=== PATIENT | male | born 1975 | race Caucasian/White ===

== ENCOUNTER 2019-09-03 01:27 | Emergency (ER) | payer MEDICAID ==
[2019-09-03] MEDS ORDERED: Sodium Chloride 0.9% 10 ML Syringe FLUSH PRN (01:55)
[2019-09-03] MEDS: Aspirin 81 MG Tab.Chew PO ONE (01:58)
--- NOTE | 2019-09-03 02:20 | EDM.PDOC ---
ED HPI GENERAL MEDICAL PROBLEM - General Chief Complaint: General Stated Complaint: chest pain Time Seen by Provider: 09/03/19 02:02 Source of Information: Reports: Patient History Limitations: Reports: No Limitations - History of Present Illness INITIAL COMMENTS - FREE TEXT/NARRATIVE: Patient presents with mid chest tightness that started about 8 hours ago and was 8/10 now down to 3/10. He was sitting watching TV when the tightness started; it lasted over 2 hours, then subsided so he went to bed, but he couldn' t sleep. He says the pain never worsened again but has remained at 3/10 for the last 6 hours like it has been for several months. Since he couldn't sleep he was getting anxious about the pain and decided to come to ER. He thinks he has coronary artery blockage since some tests a few months ago in [place]. He has had mild chest pain before but never this bad. No history of PR or diabetes. He has nitroglycerin but has never taken it. Bilateral Chest Pain Score (Numeric/FACES): 5 - Related Data Allergies Allergy/AdvReac Type Severity Reaction Status Date / Time No Known Drug Allergies Allergy none Verified 05/21/14 07:06 Home Meds: Home Meds Levothyroxine Sodium [Synthroid] 75 mg PO DAILY 05/14/14 [History] carBAMazepine [Carbamazepine ER] 400 mg PO BID 05/14/14 [History] risperiDONE [Risperdal] 1.5 tab PO BEDTIME 05/14/14 [History] Past Medical History Psychiatric History: Reports: Anxiety, Bipolar, Depression, Learning Disability Endocrine/Metabolic History: Reports: Hypoparathyroidism Social & Family History - Living Situation & Occupation Living situation: Reports: Single Occupation: Unemployed ED ROS GENERAL - Review of Systems Review Of Systems: See Below Constitutional: Denies: Fever, Chills, Malaise, Weakness, Diaphoresis HEENT: Denies: Ear Pain, Throat Pain, Vision Change Respiratory: Reports: Shortness of Breath. Denies: Cough Cardiovascular: Reports: Chest Pain. Denies: Lightheadedness, Syncope GI/Abdominal: Denies: Abdominal Pain, Diarrhea, Nausea, Vomiting : Denies: Dysuria, Flank Pain Musculoskeletal: Denies: Neck Pain, Shoulder Pain, Arm Pain, Back Pain Skin: Denies: Cyanosis, Jaundice, Mottled, Pallor, Diaphoresis Neurological: Denies: Confusion, Dizziness, Headache, Seizure, Syncope Psychiatric: Denies: Agitation, Anxiety, Confusion ED EXAM, GENERAL - Physical Exam Exam: See Below Exam Limited By: No Limitations General Appearance: Alert, WD/WN, No Apparent Distress Eye Exam: Bilateral Eye: EOMI, Normal Inspection, PERRL Ears: Normal External Exam, Hearing Grossly Normal Nose: Normal Inspection, No Blood Throat/Mouth: Normal Inspection, Normal Lips, Normal Voice, No Airway Compromise Head: Atraumatic, Normocephalic Neck: Normal Inspection, Supple, Non-Tender, Full Range of Motion Respiratory/Chest: No Respiratory Distress, Lungs Clear, Normal Breath Sounds, No Accessory Muscle Use Cardiovascular: Regular Rate, Rhythm, No Murmur GI/Abdominal: Normal Bowel Sounds, Soft, Non-Tender, No Organomegaly, No Distention Back Exam: Normal Inspection, Full Range of Motion Extremities: Normal Inspection, Normal Range of Motion, No Pedal Edema Neurological: Alert, Oriented, Normal Cognition, No Motor/Sensory Deficits Psychiatric: Normal Affect, Normal Mood Skin Exam: Warm, Dry, Intact, Normal Color, No Rash Course - Vital Signs Last Recorded V/S: Last Vital Signs Temp 95.4 F L 09/03/19 01:30 Pulse 92 09/03/19 03:27 Resp 17 09/03/19 01:30 BP 121/87 09/03/19 03:27 Pulse Ox 98 09/03/19 01:30 - Orders/Labs/Meds Orders: Active Orders 24 hr Category Date Time Status EKG Documentation Completion [RC] ASDIRECTED Care 09/03/19 02:40 Active Peripheral IV Care [RC] . DIRECTED Care 09/03/19 01:55 Active Nitroglycerin [Nitrostat] Med 09/03/19 01:54 Active 0.4 mg SL Q5M PRN Sodium Chloride 0.9% [Saline Flush] Med 09/03/19 01:55 Active 10 ml FLUSH Q8HR PRN Peripheral IV Insertion Adult [OM.PC] Routine Oth 09/03/19 01:55 Ordered EKG 12 Lead [EK] Stat Ther 09/03/19 01:46 Ordered Medication Orders Nitroglycerin (Nitrostat) 0.4 mg SL Q5M PRN PRN Reason: Chest Pain Last Admin: 09/03/19 02:58 Dose: 0.4 mg Sodium Chloride (Saline Flush) 10 ml FLUSH Q8HR PRN PRN Reason: keep vein open Labs: Laboratory Tests 09/03/19 09/03/19 Range/Units 02:15 02:15 WBC 7.02 (5.00-10.00) 10^3/uL RBC 4.28 L (4.50-6.00) 10^6/uL Hgb 14.1 (13.0-17.0) g/dL Hct 39.8 L (40.0-52.0) % MCV 93.0 H D (82.0-92.0) fL MCH 32.9 H (27.0-31.0) pg MCHC 35.4 (32.0-36.0) g/dL RDW 11.7 (11.5-14.5) % Plt Count 198 (150-400) 10^3/uL MPV 9.2 (7.4-10.4) fL Immature Gran % (Auto) 0.4 (0.0-5.0) % Neut % (Auto) 50.2 (50.0-70.0) % Lymph % (Auto) 35.0 (20.0-40.0) % [place] % (Auto) 10.0 H (2.0-8.0) % Eos % (Auto) 3.8 H (1.0-3.0) % Baso % (Auto) 0.6 (0.0-1.0) % Neut # (Auto) 3.52 (2.50-7.00) 10^3/uL Lymph # (Auto) 2.46 (1.00-4.00) 10^3/uL [place] # (Auto) 0.70 (0.10-0.80) 10^3/uL Eos # (Auto) 0.27 (0.10-0.30) 10^3/uL Baso # (Auto) 0.04 (0.00-0.10) 10^3/uL Immature Gran # (Auto) 0.03 (0.00-0.50) 10^3/uL Sodium 137 (136-145) mmol/L Potassium 4.6 (3.3-5.3) mmol/L Chloride 96 L (98-115) mmol/L Carbon Dioxide 27.5 (21.0-32.0) mmol/L Anion Gap 18.1 H (5-15) mmol/L BUN 12 (6-25) mg/dL Creatinine 0.66 (0.51-1.17) mg/dL Est Cr Clr Drug Dosing 155.29 mL/min Estimated GFR (MDRD) > 60 mL/min Glucose 97 (75 - 99) mg/dL Calcium 8.7 (8.7-10.3) mg/dL Troponin I 0.07 (0.00-0.070) ng/mL Meds: Medications Generic Name Dose Route Start Last Admin Trade Name Freq PRN Reason Stop Dose Admin Nitroglycerin 0.4 mg 09/03/19 01:54 09/03/19 02:58 Nitrostat SL 0.4 mg Q5M PRN Administration Chest Pain Sodium Chloride 10 ml 09/03/19 01:55 Saline Flush FLUSH Q8HR PRN keep vein open Discontinued Medications Generic Name Dose Route Start Last Admin Trade Name Freq PRN Reason Stop Dose Admin Aspirin 324 mg 09/03/19 01:53 09/03/19 01:58 Aspirin PO 09/03/19 01:54 324 mg ONETIME ONE Administration Al Hydroxide/Mg Hydroxide 30 0 ml 09/03/19 03:15 09/03/19 03:22 ml/ Lidocaine HCl 15 ml PO 09/03/19 03:16 45 ml ONETIME ONE Administration - Re-Assessments/Exams Free Text/Narrative Re-Assessment/Exam: 09/03/19 02:20 He was given ASA 324 mg and getting IV access then nitroglycerin prn. EKG NSR. 09/03/19 02:49 Patient says chest tightness is steady at 3/10 which is his baseline for the past 3+ months. He says he feels normal now. I asked when he last saw his tobacco packing machine operator and he said about 4 weeks ago; he talked with him about the constant chest tightness and was given nitroglycerin to carry but has never used it as he is scared to. He denies any history of heartburn/reflux. Since we have IV access will try nitro now and possibly GI cocktail. Waiting on labs. 09/03/19 03:43 I reviewed his [place] chart with the tobacco packing machine operator and PCP notes. Troponin is 0.07; on comparison his last two trops were 0.08 on 05/31/19 and rechecked 0.08 on 06/01/19. Nitro SL and GI cocktail were tried but no change in symptoms. Pain remains at baseline of 06/26. I discussed findings and treatment plan with patient. I informed him that the tests confirm he is not having a heart attack. He thinks it might be anxiety and I feels this is most likely also. Pt is discharged to home in stable condition. Departure - Departure Time of Disposition: 03:41 Disposition: Home, Self-Care 01 Condition: Good Clinical Impression: Anxiety, Sensation of chest tightness - Discharge Information Instructions: Nonspecific Chest Pain, Adult, [id number] Referrals: Francie Caballero MD [Primary Care Provider] - Forms: ED Department Discharge Additional Instructions: 1. On Wednesday see your Primary Care Provider in clinic for recheck. 2. See the tobacco packing machine operator in two weeks as scheduled. Sepsis Event Note - Focused Exam Vital Signs: Vital Signs Temp Pulse Resp BP BP Pulse Ox 09/03/19 03:27 92 121/87 09/03/19 03:20 74 131/81 09/03/19 02:58 146/84 H 09/03/19 01:30 95.4 F L 76 17 147/93 H 98 Date Exam was Performed: 09/03/19 Time Exam was Performed: 03:56 - My Orders Last 24 Hours: My Active Orders 09/03/19 01:46 EKG 12 Lead [EK] Stat 09/03/19 01:54 Nitroglycerin [Nitrostat] 0.4 mg SL Q5M PRN 09/03/19 01:55 Peripheral IV Care [RC] . DIRECTED Sodium Chloride 0.9% [Saline Flush] 10 ml FLUSH Q8HR PRN Peripheral IV Insertion Adult [OM.PC] Routine 09/03/19 02:40 EKG Documentation Completion [RC] ASDIRECTED - Assessment/Plan Last 24 Hours: My Active Orders 09/03/19 01:46 EKG 12 Lead [EK] Stat 09/03/19 01:54 Nitroglycerin [Nitrostat] 0.4 mg SL Q5M PRN 09/03/19 01:55 Peripheral IV Care [RC] . DIRECTED Sodium Chloride 0.9% [Saline Flush] 10 ml FLUSH Q8HR PRN Peripheral IV Insertion Adult [OM.PC] Routine 09/03/19 02:40 EKG Documentation Completion [RC] ASDIRECTED
[2019-09-03 02:58] LABS: ANION GAP 18.1 mmol/L (5-15); CHLORIDE,CL 96 mmol/L (98-115); SODIUM,NA 137 mmol/L (136-145)
[2019-09-03] MEDS: Nitroglycerin 0.4 MG Tab.SL SL PRN (02:58)
[2019-09-03] MEDS: Alum Hydrox/Mag Hydrox/Simeth 30 ML, Lidocaine 2% 15 ML PO ONE ×2 (03:22)
[2019-09-03 03:28] VITALS: BP 121/87; PULSE 92
== END 2019-09-03 03:55 | disposition home or self-care (01) ==
LOC: KA.ED 01:27
DX: F41.9 Anxiety disorder, unspecified (principal); F31.9 Bipolar disorder, unspecified; E20.9 Hypoparathyroidism, unspecified; Z79.899 Other long term (current) drug therapy
CPT/HCPCS: 36415; 80048; 84484; 85025; 93005; 99285-25; A9270-GY